=== PATIENT | male | born 1960 | race Caucasian/White ===

== ENCOUNTER 2024-05-07 01:28 | Day surgery (SDC) | payer MEDICARE, SELFPAY ==
[2024-04-22 15:07] VITALS: BMI 33.2
[2024-05-07 07:07] VITALS: BP 124/82; PULSE 78; RESP 17; TEMP 36.1; O2SAT 97; BMI 33.2
[2024-05-07] MEDS: LACTATED RINGERS 1,000 ML 150 ML IV CONT (07:15)
--- NOTE | 2024-05-07 07:49 | WPDANESEPPF ---
Anes - Initial Pre Proc Eval Procedure: Operation Date: 05/07/24 08:30 Proposed Procedures p Colonoscopy - Tacos Moore MD Date/Time: 05/07/24 07:49 Surgeon: Tacos Moore MD Pre Op Diagnosis: Personal history colon polyps Patient Data Age: 64 Gender: M Height: 1.83 m Weight: 111 kg Last Vital Signs Temp 97 F L 05/07/24 07:07 Pulse 78 05/07/24 07:07 Resp 17 05/07/24 07:07 BP 124/82 05/07/24 07:07 Pulse Ox 97 05/07/24 07:07 O2 Del Method Room Air 05/07/24 07:07 Allergies Allergy/AdvReac Type Severity Reaction Status Date / Time No Known Allergies Allergy Verified 05/07/24 07:05 Home Medications Medication Instructions Recorded Confirmed Type lisinopril 20 See Rx Instructions .Route 02/13/24 05/07/24 Rx mg-hydrochlorothiazide 25 mg tablet .COMPLEX #90 tabs rosuvastatin 5 mg tablet 5 mg PO DAILY #90 tabs 02/13/24 05/07/24 Rx Patient hx anesthesia problems: none Family hx anesthesia problems: none Results Review: All pre-operative results and documents have been reviewed as part of the pre-operative evaluation. [facility] Past Medical History Medical History CKD (chronic kidney disease) stage 3, GFR 30-59 ml/min History of colon polyps HTN (hypertension) IFG (impaired fasting glucose) Family History Family History Father Hypertension Family history of lung cancer Mother Hypertension Family history of coronary artery disease Social History Social History Social History: Smoking status: Never smoker Second hand tobacco smoke exposure: No Alcohol intake: current Alcohol use details: Rarely Substance use: never Substance use type: does not use Living arrangements: other Additional living arrangements comments: with sp Occupation/Education: occupation Gender identity (if verbalized by the patient): Male Sexual Orientation (if Verbalized by the Patient): Straight or Heterosexual Spiritual care concerns: No Anes - Eval Final PreProcedure Day of Procedure 05/07/24 07:49 Patient weight: obese Heart: regular rate and rhythm Lungs: clear to auscultation Airway: Mallampati scale and special considerations (Missing tooth on lower L aspect. ) Neurological: alert and oriented Last oral intake: >/= 8 hours ASA classification: II Emergent: no Anesthetic plan: proceed Anesthesia type and monitoring: general GIVS and standard monitoring Results Review: All pre-operative results and documents have been reviewed as part of the pre-operative evaluation. Informed Consent: The patient's anesthetic plan and its attendant risks and benefits were discussed with the patient/family/POA. Questions were solicited and answers provided to the satisfaction of the patient/family/POA.
--- NOTE | 2024-05-07 08:00 | PM.HPGS ---
History of Present Illness History of Present Illness Consent: Risks, benefits, and alternatives have been discussed and questions answered. Patient agrees to proceed with procedure. Chief complaint: Personal history colon polyps Narrative: Goran Guardado is a 64 year old male with colon polyp in 2018 Review of Systems Review of Systems: All systems reviewed & are unremarkable except as noted in HPI and below PMFSH Past Medical History Medical History (Updated 05/07/24 @ 08:01 by Tacos Moore MD) CKD (chronic kidney disease) stage 3, GFR 30-59 ml/min Colon polyp History of colon polyps HTN (hypertension) IFG (impaired fasting glucose) Family History Family History Father Hypertension Family history of lung cancer Mother Hypertension Family history of coronary artery disease Social History Social History Social History: Smoking status: Never smoker Second hand tobacco smoke exposure: No Alcohol intake: current Alcohol use details: Rarely Substance use: never Substance use type: does not use Living arrangements: other Additional living arrangements comments: with sp Occupation/Education: occupation Gender identity (if verbalized by the patient): Male Sexual Orientation (if Verbalized by the Patient): Straight or Heterosexual Spiritual care concerns: No Meds Home Medications and Allergies Home Medications Medication Instructions Recorded Confirmed Type lisinopril 20 See Rx Instructions .Route 02/13/24 05/07/24 Rx mg-hydrochlorothiazide 25 mg tablet .COMPLEX #90 tabs rosuvastatin 5 mg tablet 5 mg PO DAILY #90 tabs 02/13/24 05/07/24 Rx Allergies Allergy/AdvReac Type Severity Reaction Status Date / Time No Known Allergies Allergy Verified 05/07/24 07:05 Vital Signs Vital Signs - 24 hr 05/07/24 07:07 Temperature 97 F L Pulse Rate 78 Respiratory Rate 17 Blood Pressure 124/82 Pulse Oximetry 97 Oxygen Delivery Room Air Exam Const: General: comfortable and no acute distress HENMT: Face/Nose/Sinus: Normal nares present Eyes: General: appearance normal, both eyes and all related structures Neck: Neck: no JVD Resp: Auscultation: clear to auscultation bilaterally Cardio: Rate: regular rate Rhythm: regular rhythm GI: Inspection: non-distended GI Palp: Yes Soft to palpation Skin: General skin exam: normal color Neuro: General: gait normal Speech: normal speech Extrem: General: normal to inspection Psych: Mental Status: mental status grossly normal Assessment and Plan Assessment and plan (1) Colon polyp: Code(s): K63.5 - Polyp of colon Status: Acute Assessment and Plan: colonoscopy
[2024-05-07 08:23] VITALS: BP 102/56; PULSE 78; RESP 18; O2SAT 99
[2024-05-07 08:33] VITALS: BP 91/68; PULSE 75; RESP 18; O2SAT 98
[2024-05-07 08:43] VITALS: BP 99/64; PULSE 68; RESP 18; O2SAT 99
--- NOTE | 2024-05-07 08:49 | SUR.PHASEII ---
DR MI SPOKE WITH PT'S AND SUMIT PERSAUD SPOKE WITH PT AND REGARDING PT'S NEW ONSET BUNDLE BRANCH BLOCK. INSTRUCTED TO FOLLOW UP WITH PRIMARY CARE DOCTOR, STATES UNDERSTANDING.
== END 2024-05-07 08:56 | disposition home or self-care (01) ==
PROVIDERS: PCP Family Medicine; Visit Provider Internal Medicine Gastroenterology
PROC: 0DJD8ZZ Inspection of Lower Intestinal Tract, Via Natural or Artificial Opening Endoscopic (ICD-10-PCS; CPT 45378; principal; 2024-05-07 08:30)
DX: Z12.11 Encounter for screening for malignant neoplasm of colon (principal); D12.2 Benign neoplasm of ascending colon; D12.3 Benign neoplasm of transverse colon; K57.30 Diverticulosis of large intestine without perforation or abscess without bleeding; K64.8 Other hemorrhoids; I12.9 Hypertensive chronic kidney disease with stage 1 through stage 4 chronic kidney disease, or unspecified chronic kidney disease; N18.30 Chronic kidney disease, stage 3 unspecified; E66.9 Obesity, unspecified; Z68.33 Body mass index [BMI] 33.0-33.9, adult
CPT/HCPCS: 45385; 88305; J2704; J7120